=== PATIENT | male | born 1980 | race Caucasian/White ===

== ENCOUNTER 2019-05-29 13:52 | Outpatient (CLI) | payer BC ==
--- NOTE | 2019-05-29 15:28 | RAD ---
LUMBAR SPINE 2 VIEWS: HISTORY: Low back pain. FINDINGS: Slight curvature in the AP projection to the left may be positional. The lumbar vertebrae maintain h eight and alignment in the lateral view. Mild lumbarization of S1. There is loss of disk space with degenerative change at L5-S1. No evidence of spondylolisthesis. Mild degenerative spurring and mil d facet hypertrophy. IMPRESSION: Mild to moderate degenerative changes at L5-S1 with loss of disk space, mild hypertrophic spurring, a nd mild facet hypertrophy at this level. POS: [facility]
== END 2019-05-29 13:53 | disposition home or self-care (01) ==
LOC: SCSRAD 13:52
PROVIDERS: ATTEND Chiropractor
DX: M54.5 Low back pain (principal); M47.817 Spondylosis without myelopathy or radiculopathy, lumbosacral region
CPT/HCPCS: 72100